=== PATIENT | male | born 1970 | race African-American/Black ===

== ENCOUNTER 2017-11-08 08:03 | Outpatient (CLI) | payer MEDICAID ==
[2017-11-08 12:06] LABS: ALBUMIN 4.5 g/dL (3.2-5.5); ALBUMIN/GLOBULIN RATIO 1.7 (1.0-2.2); ALKALINE PHOSPHATASE 52 IU/L (42-121); ALT ALANINE AMINOTRANSFERASE 11 IU/L (10-60); AST ASPARTATE AMINOTRANSFERASE 26 IU/L (10-42); BILIRUBIN,TOTAL 1.1 mg/dL (0.2-1.0); BUN - BLOOD UREA NITROGEN 16 mg/dL (6-20); CALCIUM 9.4 mg/dL (8.5-10.3); CARBON DIOXIDE - CO2 29 mmol/L (21-32); CHLORIDE 104 mmol/L (101-111); CREATININE 1.1 mg/dL (0.6-1.2); GFR - MDRD 88 (>89); GLUCOSE 109 mg/dL (70-100); SODIUM 138 mmol/L (135-145); TOTAL PROTEIN 7.2 g/dL (6.7-8.2)
[2017-11-08 12:18] LABS: CRP - C-REACTIVE PROTEIN < 1.0 mg/dL (0-1.0)
[2017-11-08 12:22] LABS: BASOPHILS % (AUTO) 0.8 %; EOSINOPHILS # (AUTO) 0.1 10^3/uL (0.0-0.7); EOSINOPHILS % (AUTO) 1.9 %; HGB - HEMOGLOBIN 16.4 g/dL (14.0-18.0); LYMPHOCYTES # (AUTO) 1.5 10^3/uL (1.5-3.5); LYMPHOCYTES % (AUTO) 26.8 %; MEAN CORPUSCULAR HEMOGLOBIN 30.8 pg (27.0-31.0); MEAN CORPUSCULAR HGB CONC 33.6 g/dL (32.0-36.0); MEAN CORPUSCULAR VOLUME 91.7 fL (80.0-94.0); MEAN PLATELET VOLUME 8.7 fL (7.4-11.4); MONOCYTES # (AUTO) 0.7 10^3/uL (0.0-1.0); MONOCYTES % (AUTO) 12.2 %; NEUTROPHILS # (AUTO) 3.4 10^3/uL (1.5-6.6); NEUTROPHILS % (AUTO) 58.3 %; PLT - PLATELET COUNT 215 10^3/uL (130-450); RED BLOOD COUNT 5.31 10^6/uL (4.70-6.10); RED CELL DISTRIBUTION WIDTH 12.8 % (12.0-15.0); WHITE BLOOD COUNT 5.8 x10^3/uL (4.8-10.8)
[2017-11-08 12:55] LABS: RBC MORPHOLOGY (MULTIPLE) 1+ ANISOCYTOSIS (NORMAL)
[2017-11-12 13:51] LABS: ANA SCREEN NEGATIVE (NEGATIVE)
== END 2017-11-08 08:04 | disposition home or self-care (01) ==
LOC: LAB.F 08:03
PROVIDERS: ATTEND Internal Medicine
DX: D86.9 Sarcoidosis, unspecified (principal); G89.4 Chronic pain syndrome
CPT/HCPCS: 36415; 80053; 81599; 84443; 85025; 85651; 86038; 86140; 86200

== ENCOUNTER 2018-07-22 18:12 | Emergency (ER) | payer MEDICAID ==
[2018-07-22 18:40] LABS: BASOPHILS % (AUTO) 0.8 %; EOSINOPHILS # (AUTO) 0.2 10^3/uL (0.0-0.7); EOSINOPHILS % (AUTO) 3.2 %; HGB - HEMOGLOBIN 17.3 g/dL (14.0-18.0); LYMPHOCYTES % (AUTO) 34.6 %; MEAN CORPUSCULAR HEMOGLOBIN 31.5 pg (27.0-31.0); MEAN CORPUSCULAR VOLUME 92.6 fL (80.0-94.0); MEAN PLATELET VOLUME 8.3 fL (7.4-11.4); MONOCYTES # (AUTO) 0.6 10^3/uL (0.0-1.0); MONOCYTES % (AUTO) 10.4 %; PLT - PLATELET COUNT 226 10^3/uL (130-450); RED BLOOD COUNT 5.48 10^6/uL (4.70-6.10); RED CELL DISTRIBUTION WIDTH 12.7 % (12.0-15.0); WHITE BLOOD COUNT 5.8 x10^3/uL (4.8-10.8)
[2018-07-22 18:49] LABS: ALBUMIN 4.6 g/dL (3.2-5.5); ALBUMIN/GLOBULIN RATIO 1.4 (1.0-2.2); BILIRUBIN,TOTAL 0.8 mg/dL (0.2-1.0); CALCIUM 9.3 mg/dL (8.5-10.3); CREATININE 1.2 mg/dL (0.6-1.2); TOTAL PROTEIN 7.8 g/dL (6.7-8.2)
--- NOTE | 2018-07-22 19:20 | XRAY Report ---
Reason: hemoptysis, chest wall pain with inspiration Procedure Date: 07/22/2018 Accession Number: [id number] / [id number] Procedure: XR - Chest 2 View X-Ray CPT Code: 84557 FULL RESULT: EXAM: CHEST RADIOGRAPHY EXAM DATE: 07/22/2018 06:48 PM. CLINICAL HISTORY: Hemoptysis. Chest wall pain with inspiration. COMPARISON: CHEST 1 VIEW 05/09/2016 7:44 PM. TECHNIQUE: 2 views. FINDINGS: Lungs/Pleura: No focal opacities evident. No pleural effusion. No pneumothorax. Normal volumes. Mediastinum: Heart and mediastinal contours are unremarkable. Other: Lower cervical fusion again noted, otherwise no bony abnormality. IMPRESSION: Normal 2-view chest radiography. RADIA
--- NOTE | 2018-07-22 20:52 | ED Physician Documentation ---
History of Present Illness - Stated complaint Stated Complaint: CP/COUGHING BLOOD/DIZZY - Chief complaint Chief Complaint: Resp - History obtained from History obtained from: Patient - History of Present Illness Timing: Other (approximately 6 months) Pain level now: 7 Improved by: rest Worsened by: exertion, movement - Additonal information Additional information: multiple c/o. dizziness, lightheadedness x several months. Sharp, bilateral lower chest pain (anterolateral) x several weeks. cough with small amount of blood x few weeks. Review of Systems Constitutional: reports: Fatigue. denies: Fever, Chills, Sweats Cardiac: reports: Chest pain / pressure. denies: Palpitations, Pedal edema Respiratory: reports: Cough, Hemoptysis. denies: Dyspnea, Wheezing GI: reports: Reviewed and negative Musculoskeletal: denies: Neck pain, Back pain Neurologic: denies: Confused, Altered mental status, Headache PD PAST MEDICAL HISTORY - Past Medical History Past Medical History: Yes Cardiovascular: Hypertension, Coronary artery disease Neuro: Seizure disorder Psych: Anxiety - Past Surgical History Past Surgical History: Yes General: Appendectomy Ortho: Spine surgery - Present Medications Home Medications: Ambulatory Orders Medication Instructions Recorded Confirmed levETIRAcetam [Keppra] 500 mg PO DAILY 12/23/13 05/09/16 Cannabis Oil 2 puffs INH QPM PRN 06/07/15 05/09/16 Cyclobenzaprine [Flexeril] 10 mg PO TID PRN #20 tablet 06/07/15 05/09/16 Clarithromycin [Biaxin] 500 mg PO BID #28 tablet 10/07/15 05/09/16 Omeprazole [Prilosec] 20 mg PO BID #30 capsule. 10/07/15 05/09/16 Hydrocodone/Acetaminophen [Wylie 1 each PO Q6H PRN #15 tablet 05/09/16 5-325 Tablet] Ondansetron HCl [Zofran] 4 mg PO Q6H PRN #15 tablet 05/09/16 Sucralfate 1 gm PO QID #40 tablet 05/09/16 Meclizine [Antivert] 25 mg PO Q6H PRN #20 tablet 07/22/18 - Allergies Allergies/Adverse Reactions: Allergies Allergy/AdvReac Type Severity Reaction Status Date / Time droperidol [From Inapsine] Allergy Severe respiratory Verified 07/22/18 18:23 arrest codeine AdvReac Itching Verified 07/22/18 18:23 divalproex sodium AdvReac Itching Verified 07/22/18 18:23 [From Depakote] gabapentin AdvReac Hallucinati Verified 07/22/18 18:23 ons - Social History Does the pt smoke?: Yes Smoking Status: Current every day smoker Does the pt drink ETOH?: No Does the pt have substance abuse?: Yes - Immunizations Immunizations are current?: Yes - POLST Patient has POLST: No PD ED PE NORMAL - Vitals Vital signs reviewed: Yes - General General: Alert and oriented X 3, No acute distress, Well developed/nourished - Neck Neck: Supple, no meningeal sign - Cardiac Cardiac: RRR, No murmur, No gallop, No rub - Respiratory Respiratory: No respiratory distress, Clear bilaterally - Abdomen Abdomen: Soft, Non tender - Derm Derm: Normal color, Warm and dry - Extremities Extremities: No edema - Neuro Neuro: Alert and oriented X 3, armature connector 2-12 intact, Normal speech Results - Vitals Vitals: Vital Signs - 24 hr 07/22/18 07/22/18 07/22/18 18:15 20:34 21:37 Temperature 36 C L 36.5 C Heart Rate 71 74 74 Respiratory 16 16 18 Rate Blood Pressure 159/95 H 129/96 H 128/96 H O2 Saturation 98 100 98 Oxygen O2 Source Room air - Labs Labs: Laboratory Tests 07/22/18 07/22/18 18:34 18:34 WBC 5.8 RBC 5.48 Hgb 17.3 Hct 50.7 MCV 92.6 MCH 31.5 H MCHC 34.0 RDW 12.7 Plt Count 226 MPV 8.3 Neut # (Auto) 3.0 Lymph # (Auto) 2.0 Dolores # (Auto) 0.6 Eos # (Auto) 0.2 Baso # (Auto) 0.0 Absolute Nucleated RBC 0.01 Nucleated RBC % 0.1 Sodium 136 Potassium 3.9 Chloride 103 Carbon Dioxide 25 Anion Gap 8.0 BUN 18 Creatinine 1.2 Estimated GFR (MDRD) 79 L Glucose 94 Calcium 9.3 Total Bilirubin 0.8 AST 26 ALT 14 Alkaline Phosphatase 67 Total Protein 7.8 Albumin 4.6 Globulin 3.2 Albumin/Globulin Ratio 1.4 Lipase 40 - Rads (name of study) chest xray Radiology: Prelim report reviewed, See rad report PD MEDICAL DECISION MAKING - ED course Complexity details: reviewed results, considered differential, d/w patient ED course: Patient says he had a disagreement with his previous PMD several months ago and thus has not pursued outpatient evaluation with this provider for these symptoms (which have been ongoing for weeks-months). He has not tried to find a new/different PMD. His CXR and blood tests are unremarkable. I reviewed the test results with him and explained that no further emergent testing is indicated at this time, but emphasized to him that he might benefit from further testing in the outpatient setting. I instructed him to contact his insurance provider to inquire as to other options for a PMD. I also instructed him to return if his symptoms worsen in any way. His dizziness sounds like there is a vertigo component, and thus I recommended meclizine with dose now and rx for same. He was agreeable to this, but I was later told by RN that patient left before this could be given and before instructions and rx were provided. Departure - Departure Disposition: 01 Home, Self Care Clinical Impression: Vertigo, Hemoptysis, Chest pain Condition: Good Instructions: ED Dizziness UKO, ED Hemoptysis, Meclizine, ED Chest Pain Pleurisy, ED Vertigo Unspecified Follow-Up: [facility] [Provider Group] [facility] [Provider Group] Prescriptions: Meclizine [Antivert] 25 mg PO Q6H PRN #20 tablet PRN Reason: Dizziness Discharge Date/Time: 07/22/18 21:39
[2018-07-22] MEDS ORDERED: MECLIZINE 12.5 MG TABLET PO STA (21:17)
[2018-07-22 21:38] VITALS: BP 128/96
== END 2018-07-22 21:39 | disposition home or self-care (01) ==
LOC: ED 18:12
DX: R42 Dizziness and giddiness (principal); R04.2 Hemoptysis; R07.9 Chest pain, unspecified; I10 Essential (primary) hypertension; I25.10 Atherosclerotic heart disease of native coronary artery without angina pectoris; F17.200 Nicotine dependence, unspecified, uncomplicated
CPT/HCPCS: 36415; 71046; 80053; 83690; 85025; 99283; 99284; A9270